=== PATIENT | male | born 1985 | race Caucasian/White ===

== ENCOUNTER 2016-12-21 14:04 | Emergency (ER) | payer SELFPAY ==
--- NOTE | 2016-12-21 14:11 | PDOC ---
History of Present Illness - General Chief Complaint: Shortness of Breath Stated Complaint: SOB Time Seen by Provider: 12/21/16 14:11 Past History - Past Medical History Allergies/Adverse Reactions: Allergies Allergy/AdvReac Type Severity Reaction Status Date / Time No Known Allergies Allergy Verified 12/21/16 14:10 Home Medications: Ambulatory Orders NK [No Known Home Medication] 06/09/15 Anemia: No Asthma: No Cancer: No Cardiac Disorders: No CVA: No COPD: No CHF: No Dementia: No Diabetes: No GI Disorders: No Disorders: No HTN: No Hypercholesterolemia: No Kidney Stones: No Liver Disease: No Suicide Attempt (Hx): No Seizures: No Thyroid Disease: No - Surgical History Abdominal Surgery: No Appendectomy: No Cardiac Surgery: No Cholecystectomy: No Lung Surgery: No Neurologic Surgery: No Orthopedic Surgery: No - Reproductive History Testicular Surgery: No - Psycho/Social/Smoking Cessation Hx Anxiety: Yes Suicidal Ideation: No Smoking History: Current every day smoker Have you smoked in the past 12 months: Yes Number of Cigarettes Smoked Daily: 15 'Breaking Loose' booklet given: 06/04/15 Hx Alcohol Use: No Drug/Substance Use Hx: Yes Substance Use Type: Opiates, Tranquilizers Hx Substance Use Treatment: No
[2016-12-21 14:19] VITALS: TEMP 99.3; BMI 22.0
[2016-12-21] MEDS ORDERED: predniSONE 20 MG TABLET (UD) PO ONE (14:54)
[2016-12-21] MEDS ORDERED: predniSONE 20 MG TABLET (UD) ONE (14:59)
[2016-12-21] MEDS ORDERED: ALBUTEROL SO4 2.5/IPRATROPIUM 0.5 INH SOL 3 ML VIAL.NEB. NEB ONE ×3 (14:59→17:10)
--- NOTE | 2016-12-21 15:04 | PDOC ---
History of Present Illness - General Chief Complaint: Shortness of Breath Stated Complaint: SOB Time Seen by Provider: 12/21/16 14:11 - History of Present Illness Initial Comments: 12/21/16 14:56 31 yo M with h/o substance abuse and lymphocytic colitis who presents with SOB. Complains of stable dyspnea on exertion and productive cough with greenish sputum over past week. Denies hemoptysis. Also reports agitation being a trigger to SOB. Denies chest pain with deep inhalation. Wakes up with SOB, but believes it to be attributed to ASHLEY. Recently ran out of albuterol. Denies fevers/chills, N/V, chest pain, lightheadedness, dizziness, constipation/ diarrhea, swelling/pain of extremities, back pain. Continues to smoke 1/2 PPD- 1 PPD for past 13 years. No PCP. Past History - Past Medical History Allergies/Adverse Reactions: Allergies Allergy/AdvReac Type Severity Reaction Status Date / Time No Known Allergies Allergy Verified 12/21/16 14:10 Home Medications: Ambulatory Orders Albuterol Sulfate Inhaler - [Ventolin HFA Inhaler -] 1 puff IH PRN PRN #1 inhaler MDD Q 30 Minutes 12/21/16 Azithromycin [Zithromax -] 500 mg PO BID #5 tab MDD 2 Pills 12/21/16 Prednisone [Deltasone -] 40 mg PO DAILY #5 tablet MDD 1 Pill 12/21/16 Anemia: No Asthma: No Cancer: No Cardiac Disorders: No CVA: No COPD: No CHF: No Dementia: No Diabetes: No GI Disorders: No Disorders: No HTN: No Hypercholesterolemia: No Kidney Stones: No Liver Disease: No Suicide Attempt (Hx): No Seizures: No Thyroid Disease: No - Surgical History Abdominal Surgery: No Appendectomy: No Cardiac Surgery: No Cholecystectomy: No Lung Surgery: No Neurologic Surgery: No Orthopedic Surgery: No - Reproductive History Testicular Surgery: No - Psycho/Social/Smoking Cessation Hx Anxiety: Yes Suicidal Ideation: No Smoking History: Current every day smoker Have you smoked in the past 12 months: Yes Number of Cigarettes Smoked Daily: 15 Information on smoking cessation initiated: No 'Breaking Loose' booklet given: 06/04/15 Hx Alcohol Use: No Drug/Substance Use Hx: Yes Substance Use Type: Opiates, Tranquilizers Hx Substance Use Treatment: No Review of Systems - Review of Systems Comments:: 12/21/16 15:07 HEAD, EYES, EARS, NOSE AND THROAT: No change in vision. No ear pain or discharge. No sore throat.- CARDIOVASCULAR: No chest pain or shortness of breath RESPIRATORY:+ cough, and SOB. No wheezing, or hemoptysis. GASTROINTESTINAL: No nausea, vomiting, diarrhea or constipation. GENITOURINARY: No dysuria, frequency, or change in urination. MUSCULOSKELETAL: No joint or muscle swelling or pain. No neck or back pain. SKIN: No rash NEUROLOGIC: No headache, vertigo, loss of consciousness, or change in strength/ sensation. ENDOCRINE: No increased thirst. No abnormal weight change HEMATOLOGIC/LYMPHATIC: No anemia, easy bleeding, or history of blood clots. ALLERGIC/IMMUNOLOGIC: No hives or skin allergy. *Physical Exam - Vital Signs Last Vital Signs Temp Pulse Resp BP Pulse Ox 99.3 F 99 H 20 143/82 93 L 12/21/16 14:14 12/21/16 14:14 12/21/16 14:14 12/21/16 14:14 12/21/16 14:14 - Physical Exam Comments: 12/21/16 15:11 GENERAL: Awake, alert, and fully oriented, in no acute distress HEAD: No signs of trauma, normocephalic, atraumatic EYES: PERRLA, EOMI, sclera anicteric, conjunctiva clear ENT: Auricles normal inspection, hearing grossly normal, nares patent, oropharynx clear without exudates. Moist mucosa NECK: Normal ROM, supple, no lymphadenopathy, JVD, or masses LUNGS: BL Diffuse inspiratory and expiratory wheezing. No distress, speaks full sentences, clear to auscultation bilaterally HEART: Regular rate and rhythm, normal S1 and S2, no murmurs, rubs or gallops, peripheral pulses normal and equal bilaterally. EXTREMITIES: Normal inspection, Normal range of motion, no edema. No clubbing or cyanosis. SKIN: Warm, Dry, normal turgor, no rashes or lesions noted. Heart Score/ECG Review - History History: Slightly suspicious - Electrocardiogram EKG: Normal - Risk Factors Risk Factors Heart Score: Yes Smoking History - ECG Impressions Normal ECG: Yes ED Treatment Course - RADIOLOGY Radiology Studies Ordered: Category Date Time Status CHEST X-RAY PORTABLE* [RAD] Stat Radiology 12/21/16 14:54 Ordered Medical Decision Making - Medical Decision Making 12/21/16 15:11 31 yo M with h/o substance abuse and lymphocytic colitis who presents with SOB. Complains of stable dyspnea on exertion and productive cough with greenish sputum over past week. Phyiscal exam reveals BL diffuse inspiratory and expiratory wheezing. Recently ran out of albuterol. Denies fevers/chills, N/V, chest pain. O2 Sat 88-93%. Continues to smoke 1/2 PPD- 1 PPD for past 13 years. DDx: Asthma, Acute Bronchitis, Pneumonia ,Anxiety ED Course: EKG: NSR Duonebs Oral Pred 60 mg. CXR: Unremarkable 12/21/16 16:22 Patient respiratory status improved following Albuterol/Ipratropium *DC/Admit/Observation/Transfer Diagnosis at time of Disposition: Acute bronchitis Qualifiers: Bronchitis organism: unspecified organism Qualified Code(s): J20.9 - Acute bronchitis, unspecified - Discharge Dispostion Admit: No - Prescriptions Prescriptions: Prednisone [Deltasone -] 40 mg PO DAILY #5 tablet MDD 1 Pill Albuterol Sulfate Inhaler - [Ventolin HFA Inhaler -] 1 puff IH PRN PRN #1 inhaler MDD Q 30 Minutes PRN Reason: Dyspnea Azithromycin [Zithromax -] 500 mg PO BID #5 tab MDD 2 Pills - Patient Instructions Printed Discharge Instructions: DI for Cough-Child Additional Instructions: Please return to ED if you experience increased shortness of breath, blood in sputum, chest pain, or worsening symptoms. Please take medication as prescribed and follow up with admissions recruiter
[2016-12-21] MEDS: ALBUTEROL SO4 2.5/IPRATROPIUM 0.5 INH SOL 3 ML VIAL.NEB. NEB SCH ×4 (15:10→15:59)
--- NOTE | 2016-12-21 15:30 | PDOC ---
Attending Attestation - HPI HPI: 12/21/16 16:13 The patient is a 31 year old male with significant past medical history of substance abuse and lymphocytic colitis who presents to the ED for 1 week of SOB. Patient reports his SOB worsens with exertion with associated productive cough with greenish sputum. Patient reports similar symptoms back in April, where he was given a nebulizer treatment, prednisone and antibiotics. However, he did not finish the antibiotics. States he recently ran out of his albuterol. Denies fever, chills, or diaphoresis. Patient admits to tobacco use and states he continues to smoke - 1/2 PPD- 1 PPD for past 13 years. The patient denies lightheadedness, dizziness, chest pain, and palpitations. The patient denies abdominal pain, nausea, vomiting, and diarrhea. - Physicial Exam PE: 12/21/16 16:13 GENERAL: Awake, alert, and fully oriented, in no acute distress HEAD: No signs of trauma EYES: PERRLA, EOMI, sclera anicteric, conjunctiva clear ENT: Auricles normal inspection, hearing grossly normal, nares patent, oropharynx clear without exudates. Moist mucosa NECK: Normal ROM, supple, no lymphadenopathy, JVD, or masses LUNGS: Mild wheezing at the right base. No crackles HEART: Regular rate and rhythm, normal S1 and S2, no murmurs, rubs or gallops ABDOMEN: Soft, nontender, normoactive bowel sounds. No guarding, no rebound. No masses EXTREMITIES: Normal range of motion, no edema. No clubbing or cyanosis. No cords, erythema, or tenderness NEUROLOGICAL: Cranial nerves II through XII grossly intact. Normal speech, normal gait SKIN: Warm, Dry, normal turgor, no rashes or lesions noted. - Medical Decision Making 12/21/16 16:13 Documentation prepared by Tila Rankin, acting as medical science liaison for Liya Felder DO, MD/. <Tila Rankin - Last Filed: 12/21/16 16:14> - Resident Resident Name: González Richardson - ED Attending Attestation I have performed the following: I have examined & evaluated the patient, The case was reviewed & discussed with the resident, I agree w/resident's findings & plan, Exceptions are as noted - Medical Decision Making 12/21/16 15:30 I, Dr. Liya Felder, DO, attest that this document has been prepared under my direction and personally reviewed by me in its entirety. I further attest, that it accurately reflects all work, treatment, procedures and medical decision -making performed by me. 12/21/16 17:22 a/p: 31yo male with sob, cough, worsening sputum production. hx of tobacco use and hx of albuterol use. states ran out of inahler -xray -nebs steroids wheezing on exam concerning for RAD assoc with URI. Pt is nontoxic in appearnace. 12/21/16 17:23 re-eval: still with mild wheezing, will redose neb 12/21/16 17:23 pt ambulatory with a steady gait, pt speaking in full sentences. pt without resp distress 12/21/16 17:25 pts states brother here to pick him up. requesting d/c. discussed need to get meds from pharmacy and need for follow up. Pt needs formal pulmonary eval for asthma vs copd vs environmental exposure. discussed all reasons to return to the ED and need for follow up. Pt verbalizes understanding. PT stable for d/c to home. <Liya Felder - Last Filed: 12/21/16 17:27> Heart Score/ECG Review - ECG Intrepretation Comment:: 12/21/16 16:28 sinus at 83, nl axis, nl interval, no acute st/t wave findings <Liya Felder - Last Filed: 12/21/16 17:27>
[2016-12-21] MEDS ORDERED: AZITHROMYCIN 250 MG TABLET PO ONE (15:42)
[2016-12-21] MEDS ORDERED: AZITHROMYCIN 250 MG TABLET ONE (17:10)
[2016-12-21 17:34] VITALS: BP 151/75; PULSE 86
--- NOTE | 2016-12-22 12:25 | EKG ---
Test Reason : Blood Pressure : / mmHG Vent. Rate : 083 BPM Atrial Rate : 083 BPM P-R Int : 130 ms QRS Dur : 082 ms QT Int : 362 ms P-R-T Axes : 053 070 050 degrees QTc Int : 425 ms NORMAL SINUS RHYTHM WITH SINUS ARRHYTHMIA NORMAL ECG NO PREVIOUS ECGS AVAILABLE Confirmed by SIRENA PALMA, ANTHONY ([id number]) on 12/22/2016 12:25:25 PM Referred By: Confirmed By:ANTHONY PACK MD
== END 2016-12-21 17:34 | disposition home or self-care (01) ==
LOC: JER 14:04
PROC: 3E0F7GC Introduction of Other Therapeutic Substance into Respiratory Tract, Via Natural or Artificial Opening (ICD-10-PCS; principal; 2016-12-21)
PROC: 3E0F7GC Introduction of Other Therapeutic Substance into Respiratory Tract, Via Natural or Artificial Opening (ICD-10-PCS; 2016-12-21)
DX: J20.9 Acute bronchitis, unspecified (principal); G47.33 Obstructive sleep apnea (adult) (pediatric); F17.210 Nicotine dependence, cigarettes, uncomplicated; Z87.19 Personal history of other diseases of the digestive system
CPT/HCPCS: 71010-TC; 93005; 93010; 99281-25